=== PATIENT | female | born 1985 | race Asian ===

== ENCOUNTER 2018-02-07 16:27 | Emergency (ER) | payer OTHER ==
[~2018-02-07] VITALS: Ht 167.6 cm; Wt 104.3 kg
[2018-02-07 16:50] VITALS: BP 159/81; TEMP 98.1
== END 2018-02-07 19:19 | disposition home or self-care (01) ==
LOC: ED 16:27
DX: R05 Cough (principal)
CPT/HCPCS: 99281

== ENCOUNTER 2021-03-04 14:31 | Emergency (ER) | payer OTHER ==
[~2021-03-04] VITALS: Ht 167.6 cm; Wt 104.3 kg
[2021-03-04 14:31] VITALS: TEMP 98.8
[2021-03-04 15:20] VITALS: BP 138/82
== END 2021-03-04 15:30 | disposition home or self-care (01) ==
LOC: ED 14:31
DX: S33.5XXA Sprain of ligaments of lumbar spine, initial encounter (principal); X58.XXXA Exposure to other specified factors, initial encounter; Y92.89 Other specified places as the place of occurrence of the external cause
CPT/HCPCS: 99281; J1885

== ENCOUNTER 2022-05-05 21:50 | Emergency (ER) | payer OTHER ==
[~2022-05-05] VITALS: Ht 167.6 cm; Wt 127.0 kg
[2022-05-05 22:25] LABS: PLATELET COUNT 442 K/uL (152-353)
[2022-05-05 22:35] LABS: POTASSIUM 3.8 mmol/L (3.6-5.2)
[2022-05-05 23:40] VITALS: BP 124/75; TEMP 98.5
== END 2022-05-05 23:40 | disposition home or self-care (01) ==
LOC: ED 21:50
PROVIDERS: Emergency Medicine
DX: R51.9 Headache, unspecified (principal); R11.2 Nausea with vomiting, unspecified; R42 Dizziness and giddiness; B34.9 Viral infection, unspecified
CPT/HCPCS: 36415; 80048; 81002; 81025; 85027; 96372; 99283; J1885; J2405

== ENCOUNTER 2022-05-25 15:55 | Emergency (ER) | payer BC ==
[~2022-05-25] VITALS: Ht 167.6 cm; Wt 122.5 kg
[2022-05-25 16:05] VITALS: TEMP 98.2
[2022-05-25 19:12] VITALS: BP 124/81
== END 2022-05-25 19:12 | disposition home or self-care (01) ==
LOC: ED 15:55
DX: R51.9 Headache, unspecified (principal)
CPT/HCPCS: 81025; 96372; 99283; J1885

== ENCOUNTER → 2022-06-09 | Outpatient (CLI) | payer BC | LOC: US 06-06 09:30 → CT 06-06 10:00 → US 07:56 | PROVIDERS: ATTEND Nurse Practitioner Family | DX: R51.9 Headache, unspecified (principal) ==

== ENCOUNTER 2022-06-10 06:37 | Emergency (ER) | payer OTHER, BC ==
[~2022-06-10] VITALS: Ht 167.6 cm; Wt 122.5 kg
[2022-06-10 06:45] VITALS: BP 142/81; TEMP 97.9
== END 2022-06-10 07:50 | disposition home or self-care (01) ==
LOC: ED 06:37
DX: S50.11XA Contusion of right forearm, initial encounter (principal); W23.0XXA Caught, crushed, jammed, or pinched between moving objects, initial encounter; Y92.89 Other specified places as the place of occurrence of the external cause
CPT/HCPCS: 81025; 96372; 99283; J1885

== ENCOUNTER 2022-06-14 10:20 | Outpatient (CLI) | payer OTHER, BC | END 2022-06-14 22:15 | disposition home or self-care (01) | LOC: RAD 10:20 | PROVIDERS: ATTEND Nurse Practitioner Family | DX: M25.531 Pain in right wrist (principal) ==

== ENCOUNTER 2022-07-21 17:02 | Emergency (ER) | payer OTHER, BC ==
[~2022-07-21] VITALS: Ht 167.6 cm; Wt 125.2 kg
[2022-07-21 17:20] VITALS: BP 174/83; TEMP 98.6
== END 2022-07-21 18:55 | disposition home or self-care (01) ==
LOC: ED 17:02
DX: S63.501A Unspecified sprain of right wrist, initial encounter (principal); X58.XXXA Exposure to other specified factors, initial encounter
CPT/HCPCS: 99282

== ENCOUNTER 2022-08-09 18:23 | Emergency (ER) | payer OTHER, BC ==
[~2022-08-09] VITALS: Ht 167.6 cm; Wt 124.7 kg
[2022-08-09 18:35] VITALS: BP 161/94; TEMP 97.5
== END 2022-08-09 19:40 | disposition home or self-care (01) ==
LOC: ED 18:23
DX: M25.531 Pain in right wrist (principal); X58.XXXA Exposure to other specified factors, initial encounter
CPT/HCPCS: 96372; 99283; J1885